=== PATIENT | female | born 1990 | race Asian ===

== ENCOUNTER 2022-07-23 08:03 | Inpatient (IN) ==
[2022-07-23] MEDS ORDERED: LIDOCAINE 1% LOCAL 20 ML VIAL INFIL PRN (09:07)
[2022-07-23] MEDS ORDERED: OXYTOCIN 30 UNITS/500 ML BAG IV PRN ×3 (09:07→18:46)
[2022-07-23] MEDS: LACTATED RINGER'S 1,000 ML IV PRN ×3 (09:48→17:53)
[2022-07-23 10:00] LABS: Hematocrit (blood only) 36.6 % (37.0-47.0); Hemoglobin 12.6 g/dl (12.0-16.0); Mean Corpuscular Hemoglobin 31.3 pg (25.0-34.0); Mean Corpuscular Hgb Conc 34.4 g/dL (32.0-36.0); Mean Corpuscular Volume 90.8 fL (80.0-100.0); Mean Platelet Volume 11.7 fL (9.4-12.4); Platelet Count 230 K/uL (130-400); RDW Coefficient of Variation 13.9 % (11.5-14.5); RDW Standard Deviation 46.5 fL (36.4-46.3); Red Blood Count 4.03 M/uL (4.20-5.40); White Blood Count 8.73 K/ul (4.8-10.8)
--- NOTE | 2022-07-23 10:06 | History & Physical Report ---
Date of Service July 23, 2022 Assessment & Plan (1) Elective induction of labor planned: Plan: IUP at 41 weeks in multiparous female presents for IOL for post term pitocin induction begun epidural analgesia when requested anticipate vaginal Admission and Anticipated Discharge Date Admission Date: July 23, 2022 History of Present Illness Primary Care Provider: NO PCP Patient is a 31-year-old 2 para 1-0-0-1 female EDC of 07/15/2022 who presents for induction of labor because of postterm at 41-1/7 weeks. has otherwise been uncomplicated. GBS is negative. Allergies Allergy/AdvReac Type Severity Reaction Status Date / Time Penicillins Allergy Hives Verified 07/23/22 08:56 Home Medications Medication Instructions Recorded Confirmed Type prenat.vits,jozef,[id number] 1 tab PO DAILY 01/13/22 07/23/22 History Patient History Medical History (Updated 01/13/22 @ 10:44 by Rayna Galindo) Surgical History (Updated 01/13/22 @ 10:44 by Rayna Galindo) No history of previous surgery Family History Father Hypertension Diabetes Denies family history of Ovarian cancer Breast cancer Colorectal cancer Social History Smoking Status: Never smoker Second Hand Exposure: No; Do You Dip or Chew Tobacco: No; Tobacco Cessation Education Requested by Patient: No Hx Alcohol Use: No Hx Substance Use: No Preferred Language: Mandarin Slovak Communication Ability: Effective Communication Ability Comment: Able to read and write in Mandarin - limited in Finnish 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: Yes Beliefs That Will Affect Care: None marital status: marital status details: Jori Welsh ([phone] Current Living Situation: Spouse, Parent and Family Current Living Situation Comment: Daughter (4 yo - Lisa) , mother and [id number], and current occupational status: unemployed Other Information That Helps Us Care for You: No Feels Safe at Home: Yes Safety Concerns: Feels Safe At This Time Assistive Devices: None Review of Systems All systems reviewed & are unremarkable except as noted in HPI & below Physical Exam Constitutional: WD/WN, vitals as above Psychiatric: A+Ox3, euthymic affect Genitourinary: OB Exam Abdomen: + vertex, + estimated weight (7-8 pounds) and + irregular contractions Manual OB Exam: + cervical dilation 4 cm, + cervical effacement 80% and + station -2 (posterior) OB Exam Monitor Tracing: + external FHT monitor used, + external uterine monitor used, + cat egory I and + normal FHT variability Results & Data ([facility]) Vital Signs (Past 12 Hours) Vital Signs Temp Pulse Resp BP 07/23/22 08:18 98.4 F 16 07/23/22 09:50 85 137/81 07/23/22 08:09 93 H 120/77 Code Status & VTE Plan VTE Prophylaxis Plan VTE Prophylaxis will be ordered: No Coding Level of Care Code None Diagnoses Elective induction of labor planned
[2022-07-23] MEDS ORDERED: ePHEDrine sulfate 50 MG/ML AMP ONE (13:12)
[2022-07-23] MEDS ORDERED: fentaNYL citrate 100 MCG/2 ML VIAL ONE (13:13)
[2022-07-23] MEDS ORDERED: BUPIVACAINE 0.25% 30 ML VIAL ONE (13:13)
[2022-07-23] MEDS ORDERED: LIDOCAINE 2%/EPINEPHRINE 1:200,000 20 ML SDV ONE (13:13)
[2022-07-23] MEDS ORDERED: SODIUM CHLORIDE 0.9% INJ 10 ML VIAL ONE (13:13)
[2022-07-23] MEDS ORDERED: fentaNYL 2MCG/ML ROPIVACAINE 1.25MG/ML 100 ML BAG EPI ONE (13:14)
[2022-07-23] MEDS ORDERED: ONDANSETRON INJ 2 MG/ML 2 ML VIAL IV PRN (13:28)
[2022-07-23] MEDS ORDERED: NALBUPHINE HCL INJ 10 MG/ML AMP IV PRN (13:28)
[2022-07-23] MEDS ORDERED: fentaNYL 2MCG/ML ROPIVACAINE 1.25MG/ML 100 ML BAG EPI PRN (13:28)
[2022-07-23] MEDS ORDERED: diphenhydrAMINE 50 MG/ML VIAL IV PRN (13:28)
[2022-07-23] MEDS ORDERED: ePHEDrine sulfate 50 MG/ML AMP IV PRN (13:28)
[2022-07-23] MEDS ORDERED: NALOXONE HCL 0.4 MG/1 ML VIAL/CARP IV PRN (13:28)
[2022-07-23] MEDS ORDERED: NALOXONE HCL 1 MG in SODIUM CHLORIDE 0.9% 1000ML 1,000 ML IV PRN (13:28)
--- NOTE | 2022-07-23 13:30 | Anesthesiology Consultation ---
Date of Service July 23, 2022 Assessment & Plan (1) Encounter for pre-operative examination: Chart Review Chart Review: Patient NOT seen in Pre Admission Testing and Acceptable Risk for Labor Epidural Consults Requested none History Height/Weight Height: 5 ft 6.93 in Weight: 87.997 kg Allergies Allergy/AdvReac Type Severity Reaction Status Date / Time Penicillins Allergy Hives Verified 07/23/22 08:56 Medications Home Medications Medication Instructions Recorded Confirmed Last Taken prenat.vits,jozef,gmi-[id number] 1 tab PO DAILY 01/13/22 07/23/22 07/22/22 21:00 Active Medications Generic Name Dose Route Start Last Admin Trade Name Freq PRN Reason Stop Dose Admin Lactated Ringer's 1,000 mls @ 125 mls/hr 07/23/22 09:07 07/23/22 13:06 Lr IV 07/25/22 09:06 999 mls/hr .Q8H PRN Administration L&D Protocol Protocol Oxytocin 30 units in 500 mls @ 7 mls/hr 07/23/22 09:08 07/23/22 12:43 Pitocin IV 07/25/22 09:07 0.42 units/hr .Q24H PRN 7 mls/hr Labor Induction/Augmentation Titration Protocol 0.42 UNITS/HR Past Medical History Medical History Exercise / Class Metabolic Activity II 4-5 Yardwork/Stairs/Walk up hill Past Family History Family History Father Hypertension Diabetes Denies family history of Ovarian cancer Breast cancer Colorectal cancer Past Surgical History Surgical History No history of previous surgery Past Anesthesia History No Hx of Anesthesia Complications and No Family Hx of Anesthesia Complications Social History Smoking Status: Never smoker Do You Dip or Chew Tobacco: No Hx Alcohol Use: No Hx Substance Use: No substance use type: does not use Physical Exam Vital Signs Last Vital Signs Temp 36.8 C 07/23/22 11:00 Pulse 82 07/23/22 13:53 Resp 16 07/23/22 11:00 BP 130/82 07/23/22 13:50 Pulse Ox 91 07/23/22 13:53 Testing Laboratory Results 07/23/22 09:37
--- NOTE | 2022-07-23 14:32 | Labor Progress Brief Note ---
Date of Service July 23, 2022 Subjective Comfortable with epidural. FHT Cat 1 [place] Q 2 SVE 6/80/-2 Tolerated well, will continue labor. Surface Boss used. Assessment & Plan Admission and Anticipated Discharge Date Admission Date: July 23, 2022 Results & Data ([facility]) Vital Signs (Past 12 Hours) Vital Signs Temp Pulse Resp BP Pulse Ox 07/23/22 08:18 36.9 C 16 07/23/22 14:28 79 100 07/23/22 14:23 77 98 07/23/22 14:22 77 93 07/23/22 14:18 77 99 07/23/22 14:13 81 100 07/23/22 14:12 75 131/84 07/23/22 14:08 74 99 07/23/22 14:07 77 131/79 07/23/22 14:03 80 99 07/23/22 14:02 80 132/81 07/23/22 13:58 80 100 07/23/22 13:57 83 128/81 07/23/22 13:53 82 91 07/23/22 13:50 70 130/82 87 L 07/23/22 13:48 78 99 07/23/22 13:45 76 07/23/22 13:45 85 154/94 H 82 L 07/23/22 13:43 84 92 07/23/22 13:39 77 146/81 H 07/23/22 13:38 83 83 L 07/23/22 13:37 97 H 89 L 07/23/22 13:10 75 126/80 07/23/22 12:38 89 127/83 07/23/22 12:10 66 130/79 07/23/22 11:10 70 149/86 H 07/23/22 11:00 16 07/23/22 11:00 36.8 C 16 07/23/22 10:59 82 133/72 07/23/22 10:05 77 117/70 07/23/22 09:50 85 137/81 07/23/22 08:09 93 H 120/77 Coding Level of Care Code None Diagnoses
[2022-07-23] MEDS ORDERED: BENZOCAINE 20% AER SPR 82.5 GM CAN EXT PRN (18:46)
[2022-07-23] MEDS ORDERED: oxyCODONE/ACETAMINOPHEN 5mg/325mg TAB PO PRN (18:46)
[2022-07-23] MEDS ORDERED: HYDROCORTISONE ACETATE 25 MG SUPP PR PRN (18:46)
[2022-07-23] MEDS ORDERED: bisacodyL 10 MG SUPP PR PRN (18:46)
[2022-07-23] MEDS ORDERED: ACETAMINOPHEN 325 MG TAB PO PRN (18:46)
[2022-07-23] MEDS ORDERED: IBUPROFEN 600 MG TAB PO PRN (18:46)
[2022-07-23] MEDS ORDERED: DIPHTHERIA/TETANUS/PERTUSSIS 0.5mL SYR/VIAL (Age 7+yrs) IM ONE (18:46)
--- NOTE | 2022-07-23 18:47 | Delivery Summary ---
Vaginal Delivery Summary Date of Service July 23, 2022 Vaginal Delivery Summary [facility] Vaginal Delivery Summary: Pre-delivery diagnoses: 31yo @ 41 05/22, IOL Post-delivery diagnoses: same + shoulder dystocia mild Procedure: spontaneous vaginal delivery Surgeon: Jacqueline Ramos DO Complications: none Findings: Viable male . Apgars and weight pending, please see nursery records Estimated blood loss: 300 ml Description of delivery: The patient progressed to complete with epidural anesthesia. She then began to push. She spontaneously vaginally delivered a viable from the cephalic presentation. The head delivered in MICHELLE position. Nuchal x 2, reduced. The anterior shoulder did not immediately deliver, therefore the patient was repositioned with McRobert's maneuver, and then the posterior shoulder was delivered easily, followed by anterior, followed by body. 60 sec from delivery of head to body. The baby was placed on mother's abdomen and a spontaneous cry was heard. Baby was vigorous and moving both arms. Delayed cord clamping was employed, and the cord was doubly clamped and cut. Cord blood was obtained. The placenta was delivered spontaneously intact with a 3-vessel cord. The uterus and vagina were swept of clots and debris. IV pitocin was given. The uterus became firm. The cervix, vagina, and perineum were inspected and no lacerations were noted. Excellent hemostasis was observed. The mother and baby are recovering in stable and good condition in the room. Sponge and instrument counts were correct x 2. Jacqueline Ramos DO [facility] Vaginal Delivery Charge Vaginal Delivery Codes: 76767 global code for the antepartum, delivery, and post- Delivery Type Details: [facility]
--- NOTE | 2022-07-23 20:24 | Anesthesia Procedure Note ---
Date of Service July 23, 2022 Anesthesia Post Epidural Note Vital Signs Vital Signs: Temp Pulse Resp BP Pulse Ox 36.9 C 95 H 18 143/88 H 100 07/23/22 18:15 07/23/22 20:20 07/23/22 19:05 07/23/22 20:20 07/23/22 18:09 Pain Intensity Bilateral Abdomen: Pain Intensity: 0 Notes Mental Status: alert / awake / arousable Nausea / Vomiting: adequately controlled Pain: adequately controlled Airway Patency, RR, SpO2: stable & adequate BP & HR: stable & adequate Hydration State: stable & adequate Neuraxial Anesthesia: was administered and sensory block is resolving Anesthetic Complications: no major complications apparent Epidural: Removed without complications and With tip intact
[2022-07-23 22:47] LABS: Hematocrit (blood only) 35.3 % (37.0-47.0); Mean Corpuscular Volume 91.2 fL (80.0-100.0); Platelet Count 205 K/uL (130-400); RDW Coefficient of Variation 13.8 % (11.5-14.5); RDW Standard Deviation 46.3 fL (36.4-46.3); Red Blood Count 3.87 M/uL (4.20-5.40); White Blood Count 13.11 K/ul (4.8-10.8)
[2022-07-23 23:23] LABS: Albumin Globulin Ratio 0.9 (0.9-2); Albumin Level 2.9 gm/dl (3.4-5.0); BUN Creatinine Ratio 11.8 (10-20); Bilirubin,Total 0.9 mg/dl (0.2-1.0); Calcium 8.6 mg/dl (8.5-10.1); Creatinine Clr Calc Pharmacy 183.5 ml/min; Est GFR (African American) 149.6 ml/min; Globulin 3.1 gm/dl (2.5-4.0); Potassium 3.4 mmol/L (3.5-5.1)
[2022-07-24 06:40] LABS: Hematocrit (blood only) 32.8 % (37.0-47.0); Hemoglobin 11.2 g/dl (12.0-16.0)
--- NOTE | 2022-07-24 07:34 | Obstetrical Progress Note ---
Date of Service July 24, 2022 Assessment & Plan (1) Encounter for supervision of normal in multigravida: PPD#1 doing well. No concerns. Continue care. Anticipate DC home tomorrow. . Subjective Ambulation: ambulating normally Voiding: no voiding problems Diet Tolerance:: regular diet Lochia:: Moderate Review of Systems All systems reviewed & are unremarkable except as noted in HPI & below Physical Exam Constitutional WD/WN, vitals as above no acute distress Respiratory normal respiratory effort Cardiovascular Rate/Rhythm: regular rate and regular rhythm Gastrointestinal (Abdomen) Inspection/Auscultation: abdomen normal to inspection; abdomen not distended Percussion/Palpation: abdomen soft Genitourinary OB Exam Abdomen: + fundal height Fundus: + firm; not tender Results & Data ([facility]) Vital Signs (Past 12 Hours) Vital Signs Temp Pulse Pulse Resp BP BP Pulse Ox 07/24/22 03:16 36.9 C 78 16 115/82 98 07/23/22 21:15 36.8 C 16 151/93 H 07/23/22 23:20 36.9 C 82 18 128/82 98 07/23/22 20:15 18 07/23/22 19:45 18 07/23/22 20:20 95 H 143/88 H 07/23/22 20:05 86 147/92 H 07/23/22 19:50 90 145/82 H 07/23/22 19:35 90 145/76 H O2 Del Method 07/24/22 03:16 Room Air 07/23/22 21:15 Room Air 07/23/22 23:20 Room Air 07/23/22 20:15 07/23/22 19:45 07/23/22 20:20 07/23/22 20:05 07/23/22 19:50 07/23/22 19:35
[2022-07-24] MEDS: DOCUSATE SODIUM 100 MG CAP PO SCH ×2 (07:57→21:00)
[2022-07-24] MEDS: PRENATAL VITAMIN 1 TAB PO SCH (07:57)
[2022-07-24] MEDS ORDERED: bisacodyL 5 MG TABEC PO SCH (20:00)
[2022-07-25] MEDS: PRENATAL VITAMIN 1 TAB PO SCH (09:45)
[2022-07-25] MEDS: DOCUSATE SODIUM 100 MG CAP PO SCH (09:46)
--- NOTE | 2022-07-25 10:27 | Obstetrical Progress Note ---
Date of Service July 25, 2022 Assessment & Plan (1) Encounter for care and examination after delivery: steri-strips applied over incision area that is just right of the midline. continue keflex 500mg qid for 7 days scripts for Keflex, percocet and motrin sent to her pharmacy follow up appt later this week for an incision check. discharge to home today. Subjective Ambulation: ambulating normally Voiding: no voiding problems Passing Gas:: Yes Diet Tolerance:: regular diet Lochia:: Small Feeding Type:: breast feeding having some bloody drainage from one small area on the right side of the incision. a gauze dressing was applied last evening Review of Systems All systems reviewed & are unremarkable except as noted in HPI & below Physical Exam Constitutional WD/WN, vitals as above Gastrointestinal (Abdomen) Inspection/Auscultation: + abdominal surgical incision dressing is dry and intact with a dime size area of BRB just to the right of midline. erythema superior to the right side of incision the as noted last evening still present but less. no obvious bleeding site noted on the incision which looks intact. Psychiatric A+Ox3, euthymic affect Genitourinary OB Exam Abdomen: + fundal height Fundus: + firm and + relation to umbilicus (1 below U) Results & Data ([facility]) Vital Signs (Past 12 Hours) Vital Signs Temp Pulse Resp BP Pulse Ox O2 Del Method 07/24/22 23:24 98.8 F 78 18 119/83 98 Room Air
--- NOTE | 2022-07-25 10:29 | Obstetrical Progress Note ---
Date of Service July 25, 2022 Assessment & Plan (1) Encounter for care and examination after delivery: satisfactory course ready for discharge follow up in 6 weeks. Subjective Ambulation: ambulating normally Voiding: no voiding problems Passing Gas:: Yes Diet Tolerance:: regular diet Lochia:: Small Feeding Type:: breast feeding doing well this morning. questions answered with assistance of a [employer] associate. Review of Systems All systems reviewed & are unremarkable except as noted in HPI & below Physical Exam Constitutional WD/WN, vitals as above Psychiatric A+Ox3, euthymic affect Genitourinary OB Exam Abdomen: + fundal height Fundus: + firm and + relation to umbilicus (2 below) Results & Data ([facility]) Vital Signs (Past 12 Hours) Vital Signs Temp Pulse Resp BP Pulse Ox O2 Del Method 07/24/22 23:24 98.8 F 78 18 119/83 98 Room Air
== END 2022-07-25 17:45 | disposition home or self-care (01) | DRG 807 ==
LOC: 4S1 08:03 → 4E2 21:49